=== PATIENT | female | born 1970 | race Caucasian/White ===

== ENCOUNTER 2016-11-17 13:25 | Emergency (ER) | payer MEDICAID ==
[2016-11-17] MEDS ORDERED: NS 1,000 ML IV ONE (13:35)
[2016-11-17] MEDS ORDERED: ONDANSETRON 4 MG/2 ML VIAL IVP ONE (13:35)
--- NOTE | 2016-11-17 13:40 | EDPHY ---
H & P Time Seen by Provider: 11/17/16 13:26 HPI/ROS: CHIEF COMPLAINT: Vomiting, myalgias HISTORY OF PRESENT ILLNESS: 46-year-old female presents to the emergency department by ambulance with multiple episodes of vomiting over the last 3 days. The patient thinks that she has vomited 30-40 times over last 3 days. She has mild diffuse abdominal pain. No diarrhea. She felt feverish and chilled especially last night. She states that she has not been well over last several weeks. She was diagnosed with a left otitis media and started on Zithromax which she finished few weeks ago. No cough now. No nasal congestion , rhinorrhea or facial pain. Mild headache. She has some low back discomfort. No urinary symptoms. REVIEW OF SYSTEMS: Constitutional: Subjective fevers, chills Eyes: No double or blurry vision. ENT: No sore throat. Respiratory: No cough, no shortness of breath. Cardiac: No chest pain. Gastrointestinal: As above. No diarrhea. Genitourinary: No dysuria. Musculoskeletal: No neck or back pain. Skin: No rashes. Neurological: headache. Past Medical/Surgical History: Hysterectomy, pulmonary embolism Social History: Homeless Physical Exam: General Appearance: Alert, no distress. Temperature 37.9. Eyes: Pupils equal and round. Extraocular motions are all intact. ENT: Mouth: Mucous membranes moist. Respiratory: No wheezing, rhonchi, or rales, lungs are clear to auscultation. Cardiovascular: Regular rate and rhythm. Gastrointestinal: Abdomen is obese and soft and nontender, no masses, no rebound or guarding, bowel sounds normal. No CVA tenderness bilaterally. Neurological: Alert and oriented x 3, cranial nerves II through XII grossly intact Skin: Warm and dry, no rashes. Musculoskeletal: Nontender to palpate along the cervical, thoracic or lumbar spine. Neck is supple. Extremities: Full range of motion and no peripheral edema. Psychiatric: Patient is oriented X 3, there is no agitation. Constitutional: Initial Vital Signs Temperature (C) 37.9 C 11/17/16 13:37 Heart Rate 100 11/17/16 13:37 Respiratory Rate 14 11/17/16 13:37 Blood Pressure 142/94 H 11/17/16 13:37 O2 Sat (%) 96 11/17/16 13:37 O2 Delivery Mode Room Air O2 (L/minute) 2 Allergies/Adverse Reactions: latex Allergy (Verified 11/17/16 13:37) Penicillins Allergy (Verified 11/17/16 13:36) Medical Decision Making - Diagnostics Imaging: Chest x-ray reveals no acute pulmonary disease. This is reviewed by myself the PAC system as well as by the radiologist. ED Course/Re-evaluation: 46-year-old female presents to the emergency department by ambulance with myalgias and multiple episodes of vomiting. An IV was established and laboratory studies were unremarkable. Patient was given 30 mg of IV Toradol, IV Zofran, Phenergan 12.5 mg IV, and 1 mg of Ativan IV. O2 saturation was low 90s on room air. Chest x-ray reveals no evidence of pneumonia. Patient tolerated p. o. fluids. She will be discharged by cab to the [facility] for the night. Differential Diagnosis: Including but not limited to influenza, gastritis, dehydration, pneumonia - Data Points Laboratory Results: Laboratory Results 11/17/16 13:45 11/17/16 13:45 11/17/16 13:45 WBC 10.36 H 10^3/uL (3.80-9.50) RBC 5.12 10^6/uL (4.18-5.33) Hgb 14.6 g/dL (12.6-16.3) Hct 43.4 % (38.0-47.0) MCV 84.8 fL (81.5-99.8) MCH 28.5 pg (27.9-34.1) MCHC 33.6 g/dL (32.4-36.7) RDW 12.5 % (11.5-15.2) Plt Count 223 10^3/uL (150-400) MPV 9.1 fL (8.7-11.7) Neut % (Auto) 80.1 H % (39.3-74.2) Lymph % (Auto) 13.4 L % (15.0-45.0) Cobb % (Auto) 5.3 % (4.5-13.0) Eos % (Auto) 0.3 L % (0.6-7.6) Baso % (Auto) 0.5 % (0.3-1.7) Nucleat RBC Rel Count 0.0 % (0.0-0.2) Absolute Neuts (auto) 8.30 H 10^3/uL (1.70-6.50) Absolute Lymphs (auto) 1.39 10^3/uL (1.00-3.00) Absolute Monos (auto) 0.55 10^3/uL (0.30-0.80) Absolute Eos (auto) 0.03 10^3/uL (0.03-0.40) Absolute Basos (auto) 0.05 10^3/uL (0.02-0.10) Absolute Nucleated RBC 0.00 10^3/uL (0-0.01) Immature Gran % 0.4 % (0.0-1.1) Immature Gran # 0.04 10^3/uL (0.00-0.10) Sodium 143 mEq/L (134-144) Potassium 3.8 mEq/L (3.5-5.2) Chloride 105 mEq/L (97-110) Carbon Dioxide 25 mEq/l (22-31) Anion Gap 13 mEq/L (8-16) BUN 6 L mg/dL (7-23) Creatinine 0.6 mg/dL (0.6-1.0) Estimated GFR > 60 Glucose 99 mg/dL (70-100) Calcium 9.5 mg/dL (8.5-10.4) Total Bilirubin 1.0 mg/dL (0.1-1.4) Conjugated Bilirubin 0.2 mg/dL (0.0-0.5) Unconjugated Bilirubin 0.8 mg/dL (0.0-1.1) AST 18 IU/L (14-46) ALT 24 IU/L (9-52) Alkaline Phosphatase 90 IU/L (38-126) Total Protein 7.2 g/dL (6.3-8.2) Albumin 4.1 g/dL (3.5-5.0) Lipase 60.0 IU/L (23-300) Influenza Typ A,B (DFA) NEGATIVE FOR FLU (NEGATIVE) Medications Given: Discontinued Medications Sodium Chloride (Ns) 1,000 mls @ 0 mls/hr IV ONCE ONE PRN Reason: Wide Open Stop: 11/17/16 13:36 Last Admin: 11/17/16 13:45 Dose: 1,000 mls Ketorolac Tromethamine (Toradol) 30 mg IVP EDNOW ONE Stop: 11/17/16 14:28 Last Admin: 11/17/16 14:41 Dose: 30 mg Ondansetron HCl (Zofran) 4 mg IVP EDNOW ONE Stop: 11/17/16 13:36 Last Admin: 11/17/16 13:46 Dose: 4 mg Promethazine HCl (Phenergan Injection) 12.5 mg IVP ONCE ONE Stop: 11/17/16 15:31 Last Admin: 11/17/16 15:40 Dose: 12.5 mg Departure - Departure Disposition: Home, Routine, Self-Care Clinical Impression: Myalgia Vomiting Qualifiers: Vomiting type: unspecified Vomiting Intractability: non-intractable Nausea presence: with nausea Qualifier Code: (R11.2) Nausea with vomiting, unspecified Instructions: Acute Nausea and Vomiting (ED), Musculoskeletal Pain (ED) Additional Instructions: Clear liquids and slowly advance diet as tolerated. Adult Pain & Fever Control: We recommend Acetaminophen (Tylenol) and Ibuprofen (Motrin,Advil) for pain and fever control. When fever is high or pain severe, both drugs can be used at the same time, but at different intervals. Please note the time differences. Your dose is: Acetaminophen 1000mg every 4 to 6 hours Ibuprofen 600mg every 8 hours with food Note: do not take Acetaminophen with Hydrocodone (Vicodin, Lortab) or Oycodone (Percocet). These medications also contain Acetaminophen. No more than 3000mg of Acetaminophen should be taken in 24 hours (for an adult). Referrals: Kirsty Croft MD [Primary Care Provider] - 1-2 days without fail
[2016-11-17 13:52] LABS: % IMMATURE GRANULYOCYTES 0.4 % (0.0-1.1); ABSOLUTE IMMATURE GRANULOCYTES 0.04 10^3/uL (0.00-0.10); ADD DIFF? NO; ADD MORPH? NO; ADD SCAN? NO; ATYPICAL LYMPHOCYTE FLAG 90 (0-99); FRAGMENT RBC FLAG 0 (0-99); HEMATOCRIT 43.4 % (38.0-47.0); HEMOGLOBIN 14.6 g/dL (12.6-16.3); LEFT SHIFT FLG 0 (0-99); LIPEMIA HEMOLYSIS FLAG 80 (0-99); MEAN CELL HEMOGLOBIN 28.5 pg (27.9-34.1); MEAN CELL HEMOGLOBIN CONCENTR. 33.6 g/dL (32.4-36.7); MEAN CELL VOLUME 84.8 fL (81.5-99.8); MEAN PLATELET VOLUME 9.1 fL (8.7-11.7); PLATELET CLUMPS FLAG 0 (0-99); PLATELET COUNT 223 10^3/uL (150-400); RED BLOOD CELL COUNT 5.12 10^6/uL (4.18-5.33); RED CELL DISTRIBUTION WIDTH 12.5 % (11.5-15.2)
[2016-11-17 14:24] LABS: ALANINE AMINOTRANSFERASE 24 IU/L (9-52); ALBUMIN 4.1 g/dL (3.5-5.0); ALKALINE PHOSPHATASE 90 IU/L (38-126); ANION GAP 13 mEq/L (8-16); ASPARTATE AMINOTRANSFERASE 18 IU/L (14-46); BILIRUBIN-CONJUGATED 0.2 mg/dL (0.0-0.5); BILIRUBIN-UNCONJUGATED 0.8 mg/dL (0.0-1.1); CALCIUM 9.5 mg/dL (8.5-10.4); CARBON DIOXIDE 25 mEq/l (22-31); CHLORIDE 105 mEq/L (97-110); CREATININE 0.6 mg/dL (0.6-1.0); GLOMERULAR FILTRATION RATE > 60; GLUCOSE 99 mg/dL (70-100); POTASSIUM 3.8 mEq/L (3.5-5.2); SODIUM 143 mEq/L (134-144); TOTAL PROTEIN 7.2 g/dL (6.3-8.2)
[2016-11-17] MEDS ORDERED: KETOROLAC 30 MG/1 ML SDV IVP ONE (14:27)
[2016-11-17 15:04] VITALS: TEMP 99.5
[2016-11-17] MEDS ORDERED: PROMETHAZINE HCL 25 MG/ML INJ IVP ONE (15:30)
[2016-11-17 16:09] VITALS: RESP 18
--- NOTE | 2016-11-17 16:33 | DX ---
AP and lateral chest History: Pain with flulike symptoms. Comparison: None available. Findings: Lung volumes are low with mild basilar atelectasis. There is no focal consolidation, pneumo thorax, or visible pleural effusion. Borderline cardiomegaly is likely exaggerated by hypoventilatory AP technique. Degenerative change is present in the spine. Impression: Hypoventilatory chest with no acute findings.
[2016-11-17 17:10] VITALS: BP 132/80; PULSE 89; O2SAT 93
== END 2016-11-17 17:06 | disposition home or self-care (01) ==
DX: R11.2 Nausea with vomiting, unspecified (principal); M79.1 Myalgia; Z91.040 Latex allergy status
CPT/HCPCS: 96374; J1885; J2405; J2550

== ENCOUNTER 2016-11-19 16:21 | Emergency (ER) | payer MEDICAID ==
[2016-11-19 16:26] VITALS: RESP 16
[2016-11-19] MEDS ORDERED: NS 1,000 ML IV ONE ×2 (17:06)
--- NOTE | 2016-11-19 17:09 | EDPHY ---
H & P Stated Complaint: N/V for 5 days Time Seen by Provider: 11/19/16 16:32 HPI/ROS: CHIEF COMPLAINT: Nausea and vomiting, cough, abdominal pain HISTORY OF PRESENT ILLNESS: The patient presents to the ED with complaints of nausea, vomiting, cough x2 days and generalized mild abdominal pain. The patient was seen in the ED 2 days ago and had a workup including unremarkable laboratory studies, a negative chest x-ray and a negative flu test. The patient reportedly saw her primary care provider today who attempted to establish an IV for IV rehydration but was unable to. She was sent to the ED secondary to concerns regarding dehydration. The patient tells me that she has had 1 episode of loose stool today. She continues to have mild generalized abdominal pain which is nonlocalized. The patient denies dysuria. She has a slight dry cough. She denies any additional acute complaints. REVIEW OF SYSTEMS: A comprehensive 10 point review of systems is otherwise negative aside from elements mentioned in the history of present illness. Source: Patient Exam Limitations: No limitations - Personal History LMP (Females 10-55): Hysterectomy Current Tetanus/Diphtheria Vaccine: Unsure Current Tetanus Diphtheria and Acellular Pertussis (TDAP): Unsure - Medical/Surgical History Hx Asthma: No Hx Chronic Respiratory Disease: No Hx Diabetes: No Hx Cardiac Disease: No Hx Renal Disease: No Hx Cirrhosis: No Hx Alcoholism: No Hx HIV/AIDS: No Hx Splenectomy or Spleen Trauma: No Other PMH: ONI, PE's, Fibromyalgia, Cervical CA - Social History Smoking Status: Never smoked Alcohol Use: None Drug Use: None - Physical Exam Exam: General Appearance: Alert, no distress Eyes: Pupils equal and round no pallor or injection ENT, Mouth: Mucous membranes moist Respiratory: There are no retractions, lungs are clear to auscultation Cardiovascular: Regular rate and rhythm Gastrointestinal: Minimal generalized tenderness to palpation, no peritoneal signs, normal bowel sounds Neurological: A&O, normal motor function, normal sensory exam, normal cranial nerves Skin: Warm and dry, no rashes Musculoskeletal: Neck is supple nontender Extremities: symmetrical, full range of motion Constitutional: Initial Vital Signs Temperature (C) 36.5 C 11/19/16 16:23 Heart Rate 84 11/19/16 16:23 Respiratory Rate 16 11/19/16 16:23 Blood Pressure 145/99 H 11/19/16 16:23 O2 Sat (%) 100 11/19/16 16:23 O2 Delivery Mode Room Air Allergies/Adverse Reactions: latex Allergy (Verified 11/17/16 13:37) Penicillins Allergy (Verified 11/17/16 13:36) Home Medications: Medication Instructions Recorded Ondansetron Odt [Zofran Odt] 4 mg PO Q4PRN PRN #20 tab 11/19/16 Medical Decision Making - Diagnostics EKG Interpretation: EKG: Complete interpretation has been separately recorded in the [facility] archive. Summary impression: Sinus rhythm ED Course/Re-evaluation: The patient presents to the emergency department with nausea, vomiting and a mild viral syndrome. Her laboratory studies remain within normal limits. She did have a brief episode of chest pain but has an unremarkable EKG. Her vital signs are stable. Her abdominal examination is benign. I do not feel that imaging is indicated at this point time. She presents to the ED with a likely viral syndrome with the vomiting. I do feel the patient is safe to be discharged home. She will be given a prescription for Zofran. She is advised to follow up with [facility]. She is given customary return precautions. - Data Points Laboratory Results: Laboratory Results 11/19/16 17:07 11/19/16 17:07 11/19/16 17:07 WBC 5.22 10^3/uL (3.80-9.50) RBC 4.61 10^6/uL (4.18-5.33) Hgb 13.3 g/dL (12.6-16.3) Hct 40.0 % (38.0-47.0) MCV 86.8 fL (81.5-99.8) MCH 28.9 pg (27.9-34.1) MCHC 33.3 g/dL (32.4-36.7) RDW 12.5 % (11.5-15.2) Plt Count 219 10^3/uL (150-400) MPV 9.1 fL (8.7-11.7) Neut % (Auto) 54.4 % (39.3-74.2) Lymph % (Auto) 35.6 % (15.0-45.0) Beauregard % (Auto) 7.3 % (4.5-13.0) Eos % (Auto) 1.7 % (0.6-7.6) Baso % (Auto) 0.8 % (0.3-1.7) Nucleat RBC Rel Count 0.0 % (0.0-0.2) Absolute Neuts (auto) 2.84 10^3/uL (1.70-6.50) Absolute Lymphs (auto) 1.86 10^3/uL (1.00-3.00) Absolute Monos (auto) 0.38 10^3/uL (0.30-0.80) Absolute Eos (auto) 0.09 10^3/uL (0.03-0.40) Absolute Basos (auto) 0.04 10^3/uL (0.02-0.10) Absolute Nucleated RBC 0.00 10^3/uL (0-0.01) Immature Gran % 0.2 % (0.0-1.1) Immature Gran # 0.01 10^3/uL (0.00-0.10) Sodium 144 mEq/L (134-144) Potassium 3.9 mEq/L (3.5-5.2) Chloride 105 mEq/L (97-110) Carbon Dioxide 27 mEq/l (22-31) Anion Gap 12 mEq/L (8-16) BUN 8 mg/dL (7-23) Creatinine 0.6 mg/dL (0.6-1.0) Estimated GFR > 60 Glucose 90 mg/dL (70-100) Calcium 9.0 mg/dL (8.5-10.4) Total Bilirubin 0.8 mg/dL (0.1-1.4) Conjugated Bilirubin 0.3 mg/dL (0.0-0.5) Unconjugated Bilirubin 0.5 mg/dL (0.0-1.1) AST 17 IU/L (14-46) ALT 25 IU/L (9-52) Alkaline Phosphatase 80 IU/L (38-126) Total Protein 6.7 g/dL (6.3-8.2) Albumin 3.7 g/dL (3.5-5.0) Lipase 53.0 IU/L (23-300) Medications Given: Discontinued Medications Sodium Chloride (Ns) 1,000 mls @ 0 mls/hr IV ONCE ONE PRN Reason: Wide Open Stop: 11/19/16 17:07 Last Admin: 11/19/16 17:21 Dose: 1,000 mls Sodium Chloride (Ns) 1,000 mls @ 0 mls/hr IV ONCE ONE PRN Reason: Wide Open Stop: 11/19/16 17:07 Last Admin: 11/19/16 17:21 Dose: 1,000 mls Departure - Departure Disposition: Home, Routine, Self-Care Clinical Impression: Viral syndrome Condition: Good Instructions: Acute Nausea and Vomiting (ED) Additional Instructions: 1. Take Ibuprofen or Motrin 600 mg by mouth three times a day. 2. Zofran as needed for nausea 3. Please return to the ED for markedly worsening symptoms or other concerns. Referrals: Kirsty Croft MD [Primary Care Provider] - As per Instructions
[2016-11-19 17:31] LABS: % IMMATURE GRANULYOCYTES 0.2 % (0.0-1.1); ABSOLUTE IMMATURE GRANULOCYTES 0.01 10^3/uL (0.00-0.10); ADD DIFF? NO; ADD MORPH? NO; ADD SCAN? NO; ATYPICAL LYMPHOCYTE FLAG 70 (0-99); FRAGMENT RBC FLAG 0 (0-99); HEMOGLOBIN 13.3 g/dL (12.6-16.3); LEFT SHIFT FLG 0 (0-99); LIPEMIA HEMOLYSIS FLAG 80 (0-99); MEAN CELL HEMOGLOBIN 28.9 pg (27.9-34.1); MEAN CELL HEMOGLOBIN CONCENTR. 33.3 g/dL (32.4-36.7); MEAN CELL VOLUME 86.8 fL (81.5-99.8); MEAN PLATELET VOLUME 9.1 fL (8.7-11.7); PLATELET CLUMPS FLAG 0 (0-99); PLATELET COUNT 219 10^3/uL (150-400); RED BLOOD CELL COUNT 4.61 10^6/uL (4.18-5.33); RED CELL DISTRIBUTION WIDTH 12.5 % (11.5-15.2)
[2016-11-19 17:43] LABS: ALBUMIN 3.7 g/dL (3.5-5.0); ALKALINE PHOSPHATASE 80 IU/L (38-126); ANION GAP 12 mEq/L (8-16); ASPARTATE AMINOTRANSFERASE 17 IU/L (14-46); BILIRUBIN,TOTAL 0.8 mg/dL (0.1-1.4); CARBON DIOXIDE 27 mEq/l (22-31); CHLORIDE 105 mEq/L (97-110); CREATININE 0.6 mg/dL (0.6-1.0); GLOMERULAR FILTRATION RATE > 60; GLUCOSE 90 mg/dL (70-100); POTASSIUM 3.9 mEq/L (3.5-5.2); SODIUM 144 mEq/L (134-144); TOTAL PROTEIN 6.7 g/dL (6.3-8.2)
[2016-11-19 17:44] LABS: ALANINE AMINOTRANSFERASE 25 IU/L (9-52); BILIRUBIN-CONJUGATED 0.3 mg/dL (0.0-0.5); BILIRUBIN-UNCONJUGATED 0.5 mg/dL (0.0-1.1)
--- NOTE | 2016-11-19 18:24 | CPEKG ---
Heart Rate: 67 RR Interval: 896 P-R Interval: 160 QRSD Interval: 76 QT Interval: 452 QTC Interval: 478 P Brunson: 29 QRS Brunson: 20 T Wave Brunson: 21 EKG Severity - NORMAL ECG - EKG Impression: SINUS RHYTHM Electronically Signed By: Mario Rivera 19-Nov-2016 23:03:04
[2016-11-19] MEDS ORDERED: ONDANSETRON 4MG PREPACK#2 BTL TAKEHOME ONE (18:36)
[2016-11-19 18:53] VITALS: BP 138/95; PULSE 74; TEMP 98.2; O2SAT 96
== END 2016-11-19 19:03 | disposition home or self-care (01) ==
LOC: EEVIPCON 16:21
DX: B34.9 Viral infection, unspecified (principal); Z91.040 Latex allergy status; Z85.41 Personal history of malignant neoplasm of cervix uteri

== ENCOUNTER 2017-04-09 08:53 | Emergency (ER) | payer MEDICAID ==
[2017-04-09 09:09] VITALS: BP 154/106; PULSE 70; RESP 18; TEMP 98.4; O2SAT 96
[2017-04-09] MEDS ORDERED: RABIES IMMUNE GLOBULIN 300 UNIT/2 ML VIAL IM ONE (09:40)
[2017-04-09] MEDS ORDERED: TDAP ADULT 0.5 ML INJ (BOOSTRIX) IM ONE (09:40)
[2017-04-09] MEDS ORDERED: RABIES VACC, HUMAN DIPLOID/PF 2.5 UNIT VIAL (RABAVERT) IM ONE (09:40)
--- NOTE | 2017-04-09 09:43 | EDPHY ---
H & P Stated Complaint: Bit by unknown dog on R thigh;occurred in [place] yesterday HPI/ROS: CHIEF COMPLAINT: Dog bite HISTORY OF PRESENT ILLNESS: Patient was walking in [place] yesterday when she was bit by an unknown dog. She said there were 2 dogs fighting around her and she got in between them accidentally. She was bit in the right lateral thigh. There is no way to know about the dog's vaccination status as they quickly left. There was no call or on the dog. She has had moderate pain in that area with some bruising. Minimal bleeding. No bony tenderness. Tetanus status is in question. She has no injuries elsewhere. No other associated complaints or modifying factors. REVIEW OF SYSTEMS: Ten systems reviewed and are negative unless otherwise noted in the HPI PERTINENT MEDICAL HISTORY: Denies any medical history EXAMINATION General Appearance: Alert, no distress Head: normocephalic, atraumatic Eyes: Pupils equal and round, no conjunctival pallor or injection ENT, Mouth: Mucous membranes moist Neck: Normal inspection, supple, non-tender Cardiovascular: Regular rate and rhythm. Pulses intact distally symmetrically at 2+ in the DP and PT Neurological: A&O, nonfocal, antalgic but steady gait Skin: Warm and dry, no rash. Puncture wounds over the right lateral thigh consistent with dog bite. There is ecchymosis surrounding this. No purulence. No erythema. No fluctuance. Extremities: Tender over the area of puncture wound. No bony tenderness of the right lower extremity. Range of motion of the right hip, knee and ankle fully intact. Neurovascular intact distal to the puncture wounds. Psychiatric: Mood and affect normal MDM: 9:40 a.m. Dog bite to the right thigh that occurred yesterday. Tetanus status is un certain and we will updated here. Patient is requesting over axis from rabies. This is because the dog was not collared and unable to be located. Concerned as she feels that the dog was not taking care. She is requesting start treatment here. 10:00 a.m. Discussed the case with Dr. Rivera. He does not recommend rabies post-exposure prophylaxis at this time. She is comfortable with not having the rabies vaccine or immune globulin. She is discharged home with prescription for doxycycline as she is allergic to penicillin. We discussed routine wound care for this. Follow up with primary care physician for definitive care. Return here for worsening pain, surrounding erythema, purulence, fever. She is comfortable this plan and discharged home in stable condition. SUPERVISION: Shared visit with Dr. Rivera. Patient was not personally evaluated by Dr. Rivera Source: Patient Exam Limitations: No limitations - Personal History LMP (Females 10-55): Hysterectomy Current Tetanus Diphtheria and Acellular Pertussis (TDAP): Unsure - Medical/Surgical History Hx Asthma: No Hx Chronic Respiratory Disease: No Hx Diabetes: No Hx Cardiac Disease: No Hx Renal Disease: No Hx Cirrhosis: No Hx Alcoholism: No Hx HIV/AIDS: No Hx Splenectomy or Spleen Trauma: No Other PMH: ONI, PE's, Fibromyalgia, Cervical CA, HTN - Social History Smoking Status: Never smoked Constitutional: Initial Vital Signs Temperature (C) 98.4 F 04/09/17 09:00 Heart Rate 70 04/09/17 09:00 Respiratory Rate 18 04/09/17 09:00 Blood Pressure 154/106 H 04/09/17 09:00 O2 Sat (%) 96 04/09/17 09:00 O2 Delivery Mode Room Air Allergies/Adverse Reactions: diphenhydramine [From Benadryl] Allergy (Mild, Verified 04/09/17 09:05) itching,vomiting Penicillins Allergy (Mild, Verified 04/09/17 09:04) Vomiting latex Allergy (Verified 11/17/16 13:37) Home Medications: Medication Instructions Recorded Doxycycline Hyclate 100 mg PO BID #20 tab 04/09/17 Medical Decision Making - Data Points Medications Given: Discontinued Medications Diphtheria/Tetanus/Acell Pertussis (Boostrix) 0.5 ml IM .ONCE ONE Stop: 04/09/17 09:41 Last Admin: 04/09/17 09:47 Dose: 0.5 ml Departure - Departure Disposition: Home, Routine, Self-Care Clinical Impression: Bite from dog Qualifiers: Encounter type: initial encounter Qualified Code(s): W54.0XXA - Bitten by dog, initial encounter Condition: Good Instructions: Animal Bite (ED) Additional Instructions: 1. Keep the wound clean dry and cover with nonocclusive dressing next 2. Bacitracin once daily for the next 3-5 days 3. Follow up with primary care for further treatment 4. Return here for worsening pain, redness or purulence Referrals: Sesar Sena DO [Doctor of Osteopathy] - As per Instructions Prescriptions: Doxycycline Hyclate 100 mg PO BID #20 tab
== END 2017-04-09 10:05 | disposition home or self-care (01) ==
PROC: 3E0234Z Introduction of Serum, Toxoid and Vaccine into Muscle, Percutaneous Approach (ICD-10-PCS; principal; 2017-04-09)
DX: S71.151A Open bite, right thigh, initial encounter (principal); I10 Essential (primary) hypertension; Z23 Encounter for immunization; Z85.41 Personal history of malignant neoplasm of cervix uteri; Z91.040 Latex allergy status; W54.0XXA Bitten by dog, initial encounter

== ENCOUNTER → 2017-05-28 | Outpatient (CLI) | payer MEDICAID | LOC: FCPNEURO 13:40 | PROVIDERS: ATTEND Internal Medicine Sleep Medicine | DX: G47.33 Obstructive sleep apnea (adult) (pediatric) (principal); G47.61 Periodic limb movement disorder ==

== ENCOUNTER 2017-09-05 21:16 | Inpatient (IN) | payer MEDICAID ==
--- NOTE | 2017-09-05 21:34 | CPEKG ---
Heart Rate: 62 RR Interval: 968 P-R Interval: 164 QRSD Interval: 76 QT Interval: 408 QTC Interval: 415 P Blanchard: 44 QRS Blanchard: 13 T Wave Blanchard: 25 EKG Severity - BORDERLINE ECG - EKG Impression: SINUS RHYTHM EKG Impression: BORDERLINE T WAVE ABNORMALITIES Electronically Signed By: Gurwinder Miller 06-Sep-2017 08:43:57
--- NOTE | 2017-09-05 22:02 | EDPHY ---
H & P Stated Complaint: CP, dyspnea, nausea, dizzy - all day, previous Hx of same without Dx Time Seen by Provider: 09/05/17 21:49 HPI/ROS: CHIEF COMPLAINT: Chest pain, dyspnea, nausea, dizzy HISTORY OF PRESENT ILLNESS: The patient is 47 y/o female complaining of nausea which developed last night associated with slight episodes of chest discomfort. Patient reports since noon today she developed significant nausea, left-sided chest discomfort, dizziness, shortness of breath, and pain into her left upper extremity. She reports symptoms have been mostly consistent with slight waxing and waning since noon. No vomiting. No diaphoresis. Similar symptoms in the remote past no clear diagnosis. Patient denies any history of coronary artery disease, diabetes, hypertension, reflux, or gastritis. She does report a history total hysterectomy complicated with multiple PE's, which she was placed on anticoagulants for 2 years. The nausea has been continuous since last night and the chest pain has been waxing and waning since 12:00. Denies history of CAD , diabetes. No fever, chills, URI symptoms, vomiting, diarrhea, urinary complaints, headache. No pain or weakness in the leg. No upper extremity weakness. No numbness. Does report pain in the left arm. REVIEW OF SYSTEMS Aside from elements discussed in the HPI, a comprehensive 10-point review of systems was reviewed and is negative. PAST MEDICAL HISTORY: PE, sleep apnea, fibromyalgia, cervical cancer, hypertension, appendectomy, cholecystectomy, total hysterectomy SOCIAL HISTORY: at bedside, lives in [place], denies alcohol or tobacco use VITAL SIGNS: BP 158/110, others reviewed by me as normal GENERAL: Moderately overweight, pleasant, somewhat hoarse voice. Complaining of significant epigastric and left-sided chest pain. HEENT: Atraumatic. Eyes: No icterus, no injection. Mouth: moist mucous membranes. No erythema or lesions. Neck: supple with no adenopathy. LUNGS: Clear to auscultation bilaterally, no wheezes, rhonchi or rales. CARDIAC: Left chest wall tenderness. Regular rate and rhythm, no rubs, murmurs or gallops. ABDOMEN: Epigastric and LUQ tenderness. No guarding or rebound. Soft, nondistended, bowel sounds normal. BACK: No CVA tenderness. EXTREMITIES: No trauma. Trace edema. Range of motion is normal throughout. NEURO: Alert and oriented, grossly nonfocal. No weakness or numbness. SKIN: Warm and dry, no rash. PSYCHIATRIC: Normal mentation, no agitation. Portions of this note were transcribed by a medical transcription editor. I personally performed a history, physical exam, medical decision making, and confirmed accuracy of information the transcribed note. - Personal History LMP (Females 10-55): Hysterectomy Current Tetanus/Diphtheria Vaccine: Yes - Medical/Surgical History Hx Asthma: No Hx Chronic Respiratory Disease: No Hx Diabetes: No Hx Cardiac Disease: No Hx Renal Disease: No Hx Cirrhosis: No Hx Alcoholism: No Hx HIV/AIDS: No Hx Splenectomy or Spleen Trauma: No Other PMH: PSHx: ONI. PMHx: PE's, Fibromyalgia, Cervical CA, HTN - Social History Smoking Status: Never smoked Constitutional: Initial Vital Signs Temperature (C) 36.5 C 09/05/17 21:20 Heart Rate 77 09/05/17 21:20 Respiratory Rate 18 09/05/17 21:20 Blood Pressure 158/110 H 09/05/17 21:20 O2 Sat (%) 96 09/05/17 21:20 O2 Delivery Mode Room Air Allergies/Adverse Reactions: diphenhydramine [From Benadryl] Allergy (Mild, Verified 04/09/17 09:05) itching,vomiting Penicillins Allergy (Mild, Verified 04/09/17 09:04) Vomiting latex Allergy (Verified 11/17/16 13:37) Home Medications: Medication Instructions Recorded Pregabalin [Lyrica 50mg (*)] 50 mg PO TID 09/06/17 Zolpidem Tartrate [Ambien 10 mg] 10 mg PO HS 09/06/17 Medical Decision Making - Diagnostics EKG Interpretation: 12-LEAD EKG: Please see the full report in [facility]. My interpretation: Normal sinus rhythm with a rate of 62, borderline T wave abnormalities ( flattened T wave in V5, V6 when compared to old EKG). Imaging Results: CXR: Impression: Moderate hypoventilatory features. Dictated By: Kenneth Sauceda MD Results: CT scan of the chest for pulmonary embolism was obtained. I viewed the images independently on the PACS system. I discussed the results of the study with the radiologist. Impression: 1. There is no CT evidence of pulmonary artery thrombo-embolic disease. 2. Hypoventilatory features with some bibasilar subsegmental atelectasis. 3. Morbid obesity with hepatic steatosis and mild splenomegaly. 4. Status post cholecystectomy. Findings were discussed with Ania Eller MD at 0:02, on 09/06/2017. . Please see the full radiology report. Imaging: Discussed imaging studies w/ outbound supervisor Radiologist, I viewed and interpreted images myself ED Course/Re-evaluation: The patient is a 47 y/o female presenting with chest pain and shortness of breath. On exam she has left chest wall tenderness, moderate epigastric tenderness, and mild LUQ tenderness. Aspirin given. Zofran given 4 patient's nausea. 4mg IV Morphine administered for pain management. 213: EKG interpreted as sinus rhythm with borderline T wave abnormalities when compared to old EKG. Patient's liver function tests and lipase are normal. CBC largely unremarkable. Troponin is negative. On re-examination the patient continues to complain of significant epigastric discomfort with tenderness palpation as well as tenderness across the chest. She reports that her chest discomfort feel similar to her prior PE. GI cocktail as well as Dilaudid was administered. CT for pulmonary embolism was ordered. CT scan for PE was negative. On re-examination the patient reports feeling no relief with her GI cocktail. Also complains of pain in her left upper arm, to level of elbow, along with nausea. Toradol administered along with dilaudid. Course discussed with Dr Cason. Plan for admission if no relief from above medications. Patient seen in the emergency department by Dr. Walters. She has had no relief with the above medications. She continues to report nausea, chest discomfort, discomfort in her arm. No headache. Will be admitted to the hospital. Differential Diagnosis: Differential diagnoses for the patient's symptom complex was considered including but not limited to gastritis, GERD, pulmonary infectious process, COPD exacerbation, pulmonary embolism, pericarditis, costochondritis, cardiac causes including myocardial ischemia acute coronary syndrome. Consult/Admit Bed Type: CHIQUITA Merritt - Data Points Laboratory Results: Laboratory Results 09/05/17 21:50 09/05/17 21:50 Medications Given: Enoxaparin Sodium (Lovenox) 40 mg SC DAILY JERARDO Stop: 03/05/18 08:59 Last Admin: 09/06/17 09:32 Dose: 40 mg Hydromorphone/Sodium Chloride (Hydromorphone) 0.2 - 0.4 mg IVP Q2H PRN PRN Reason: Pain, Severe Unable to Take PO Stop: 09/16/17 01:05 Last Admin: 09/06/17 09:41 Dose: 0.4 mg Melatonin (Melatonin) 3 mg PO HS PRN PRN Reason: Sleep/Insomnia Stop: 03/05/18 02:52 Last Admin: 09/06/17 02:58 Dose: 3 mg Methocarbamol (Robaxin) 1,000 mg PO TID PRN PRN Reason: Spasms Stop: 03/05/18 15:59 Last Admin: 09/06/17 12:23 Dose: 1,000 mg Ondansetron HCl (Zofran Odt) 4 mg PO Q4HRS PRN PRN Reason: Nausea/Vomiting, Use 1st Stop: 03/05/18 01:05 Last Admin: 09/06/17 12:00 Dose: 4 mg Discontinued Medications Al Hydroxide/Mg Hydroxide (Maalox Susp) 30 ml PO ONCE ONE Stop: 09/05/17 23:17 Last Admin: 09/05/17 23:25 Dose: 30 ml Aspirin (Aspirin) 324 mg PO EDNOW ONE Stop: 09/05/17 22:20 Last Admin: 09/05/17 22:25 Dose: 324 mg Hydromorphone HCl (Dilaudid) 1 mg IVP EDNOW ONE Stop: 09/05/17 23:46 Last Admin: 09/05/17 23:56 Dose: 1 mg Hydromorphone HCl (Dilaudid) 1 mg IVP EDNOW ONE Stop: 09/06/17 00:12 Last Admin: 09/06/17 00:18 Dose: 1 mg Hyoscyamine Sulfate (Levsin, Hyomax-Sl) 0.25 mg PO ONCE ONE Stop: 09/05/17 23:17 Last Admin: 09/05/17 23:24 Dose: 0.25 mg Ketorolac Tromethamine (Toradol) 30 mg IVP EDNOW ONE Stop: 09/06/17 00:12 Last Admin: 09/06/17 00:17 Dose: 30 mg Lidocaine (Lidocaine 2% Viscous) 15 ml PO ONCE ONE Stop: 09/05/17 23:17 Last Admin: 09/05/17 23:25 Dose: 15 ml Morphine Sulfate (Morphine) 4 mg IVP EDNOW ONE Stop: 09/05/17 22:20 Last Admin: 09/05/17 22:25 Dose: 4 mg Sumatriptan Succinate (Imitrex Sc Injection) 6 mg SC ONCE ONE Stop: 09/06/17 11:57 Last Admin: 09/06/17 12:23 Dose: 6 mg Departure - Departure Disposition: [facility] Inpatient Acute Clinical Impression: Nausea, Chest wall pain Chest pain Qualifiers: Chest pain type: chest pain on breathing Qualified Code(s): R07.1 - Chest pain on breathing Condition: Good Report Scribed for: Ania Eller Report Scribed by: Kim Salazar Date of Report: 09/05/17 Time of Report: 21:59
[2017-09-05] MEDS ORDERED: ASPIRIN 81 MG CHEWABLE TAB PO ONE (22:19)
[2017-09-05 22:24] LABS: % IMMATURE GRANULYOCYTES 0.3 % (0.0-1.1); ABSOLUTE IMMATURE GRANULOCYTES 0.02 10^3/uL (0.00-0.10); ADD DIFF? NO; ADD MORPH? NO; ADD SCAN? NO; ATYPICAL LYMPHOCYTE FLAG 0 (0-99); FRAGMENT RBC FLAG 0 (0-99); HEMATOCRIT 41.8 % (38.0-47.0); HEMOGLOBIN 13.5 g/dL (12.6-16.3); LEFT SHIFT FLG 0 (0-99); LIPEMIA HEMOLYSIS FLAG 80 (0-99); MEAN CELL HEMOGLOBIN 29.2 pg (27.9-34.1); MEAN CELL HEMOGLOBIN CONCENTR. 32.3 g/dL (32.4-36.7); MEAN CELL VOLUME 90.3 fL (81.5-99.8); MEAN PLATELET VOLUME 9.5 fL (8.7-11.7); PLATELET CLUMPS FLAG 90 (0-99); PLATELET COUNT 225 10^3/uL (150-400); RED BLOOD CELL COUNT 4.63 10^6/uL (4.18-5.33); RED CELL DISTRIBUTION WIDTH 13.1 % (11.5-15.2)
[2017-09-05 22:33] LABS: ALANINE AMINOTRANSFERASE 26 IU/L (9-52); ALKALINE PHOSPHATASE 71 IU/L (38-126); ANION GAP 15 mEq/L (8-16); ASPARTATE AMINOTRANSFERASE 21 IU/L (14-46); BILIRUBIN,TOTAL 0.3 mg/dL (0.1-1.4); BILIRUBIN-CONJUGATED 0.2 mg/dL (0.0-0.5); BILIRUBIN-UNCONJUGATED 0.1 mg/dL (0.0-1.1); CALCIUM 9.2 mg/dL (8.5-10.4); CARBON DIOXIDE 19 mEq/l (22-31); CHLORIDE 108 mEq/L (97-110); CREATININE 0.6 mg/dL (0.6-1.0); GLOMERULAR FILTRATION RATE > 60; GLUCOSE 127 mg/dL (70-100); POTASSIUM 3.9 mEq/L (3.5-5.2); SODIUM 142 mEq/L (134-144); TOTAL PROTEIN 6.1 g/dL (6.3-8.2)
[2017-09-05 22:45] LABS: TROPONIN I < 0.012 ng/mL (0.000-0.034)
[2017-09-05] MEDS ORDERED: HYOSCYAMINE SULFATE 0.125 MG TAB PO ONE (23:16)
[2017-09-05] MEDS ORDERED: MAG HYDROX/AL HYDROX/SIMETH 30 ML UDCUP PO ONE (23:16)
[2017-09-05] MEDS ORDERED: LIDOCAINE 2% VISCOUS 15 ML UDCUP PO ONE (23:16)
[2017-09-05] MEDS ORDERED: IOPAMIDOL (ISOVUE 370) 100 ML BTL IV ONE (23:17)
[2017-09-05] MEDS ORDERED: HYDROmorphONE/DILAUDID 1 MG/ML INJ IVP ONE (23:45)
[2017-09-06] MEDS ORDERED: KETOROLAC 30 MG/1 ML SDV IVP ONE (00:11)
[2017-09-06] MEDS ORDERED: HYDROmorphONE/DILAUDID 1 MG/ML INJ IVP ONE (00:11)
[2017-09-06] MEDS ORDERED: ACETAMINOPHEN 325 MG TAB PO PRN (01:06)
[2017-09-06] MEDS ORDERED: ONDANSETRON 4 MG/2 ML VIAL IVP PRN (01:06)
[2017-09-06] MEDS ORDERED: ONDANSETRON DISINTEGRATING 4 MG TAB PO PRN (01:06)
[2017-09-06] MEDS ORDERED: oxyCODONE IR 5 MG TAB PO PRN (01:06)
--- NOTE | 2017-09-06 01:22 | PDGENHP ---
History and Physical - Chief Complaint Chest pain - History of Present Illness 47 yo F w/ hx of fibormyalgia and PE's (no longer on AC) presents with chest pain. Patient began to experience nausea yesterday. She then developed 10/10 L sided chest pain with radiation down the left arm. Pain is worsened by pressing on her chest or leaning forward and has not been particularly improved by anything despite morphine 4 mg IV, Dilaudid 2 mg IV total, and toradol 30 mg IV given the ED. She describes it as if someone punched her in the chest with a sharp sensation then traveling to her L elbow. She denies fevers, chills, cough , or other infectious symptoms. In the ED her evaluation has been unremarkable despite ongoing excruciating pain. Vital signs have been WNL, laboratory work-up unremarkable including D- dimer and troponin, and CTPE was negative for PE, pneumonia, or pneumothorax. History Information - Allergies/Home Medication List Allergies/Adverse Reactions: diphenhydramine [From Benadryl] Allergy (Mild, Verified 04/09/17 09:05) itching,vomiting Penicillins Allergy (Mild, Verified 04/09/17 09:04) Vomiting latex Allergy (Verified 11/17/16 13:37) Home Medications: LYRICA 09/05/17 [Last Taken Unknown] I have personally reviewed and updated: family history, medical history - Past Medical History fibromyalgia, pulmonary embolism - Surgical History Reports: hysterectomy - Family History Additional family history: Denies family hx - Social History Smoking Status: Never smoked Review of Systems Review of Systems: ROS: 10pt was reviewed & negative except for what was stated in HPI & below Physical Exam Physical Exam: Temp Pulse Resp BP Pulse Ox 36.5 C 68 17 130/86 H 97 09/05/17 21:20 09/05/17 23:31 09/05/17 23:31 09/05/17 23:31 09/05/17 23:31 Constitutional: obese, uncomfortable Eyes: PERRL, EOMI Ears, Nose, Mouth, Throat: moist mucous membranes, no oral mucosal ulcers Cardiovascular: regular rate and rhythym, no murmur, rub, or gallop Respiratory: no respiratory distress, no rales or rhonchi Gastrointestinal: normoactive bowel sounds, soft, non-tender abdomen Skin: warm, normal color Musculoskeletal: full muscle strength, other (Significant TTP over sternum and medial L breast) Neurologic: AAOx3, CN II-XII Intact Psychiatric: interacting appropriately, not anxious Lab Data & Imaging Review 09/05/17 21:50 09/05/17 21:50 WBC 6.28 10^3/uL (3.80-9.50) 09/05/17 21:50 RBC 4.63 10^6/uL (4.18-5.33) 09/05/17 21:50 Hgb 13.5 g/dL (12.6-16.3) 09/05/17 21:50 Hct 41.8 % (38.0-47.0) 09/05/17 21:50 MCV 90.3 fL (81.5-99.8) 09/05/17 21:50 MCH 29.2 pg (27.9-34.1) 09/05/17 21:50 MCHC 32.3 g/dL (32.4-36.7) L 09/05/17 21:50 RDW 13.1 % (11.5-15.2) 09/05/17 21:50 Plt Count 225 10^3/uL (150-400) 09/05/17 21:50 MPV 9.5 fL (8.7-11.7) 09/05/17 21:50 Neut % (Auto) 50.3 % (39.3-74.2) 09/05/17 21:50 Lymph % (Auto) 39.5 % (15.0-45.0) 09/05/17 21:50 Overton % (Auto) 6.4 % (4.5-13.0) 09/05/17 21:50 Eos % (Auto) 2.4 % (0.6-7.6) 09/05/17 21:50 Baso % (Auto) 1.1 % (0.3-1.7) 09/05/17 21:50 Nucleat RBC Rel Count 0.0 % (0.0-0.2) 09/05/17 21:50 Absolute Neuts (auto) 3.16 10^3/uL (1.70-6.50) 09/05/17 21:50 Absolute Lymphs (auto) 2.48 10^3/uL (1.00-3.00) 09/05/17 21:50 Absolute Monos (auto) 0.40 10^3/uL (0.30-0.80) 09/05/17 21:50 Absolute Eos (auto) 0.15 10^3/uL (0.03-0.40) 09/05/17 21:50 Absolute Basos (auto) 0.07 10^3/uL (0.02-0.10) 09/05/17 21:50 Absolute Nucleated RBC 0.00 10^3/uL (0-0.01) 09/05/17 21:50 Immature Gran % 0.3 % (0.0-1.1) 09/05/17 21:50 Immature Gran # 0.02 10^3/uL (0.00-0.10) 09/05/17 21:50 D-Dimer 0.29 ug/mLFEU (0.00-0.50) 09/05/17 23:01 Sodium 142 mEq/L (134-144) 09/05/17 21:50 Potassium 3.9 mEq/L (3.5-5.2) 09/05/17 21:50 Chloride 108 mEq/L (97-110) 09/05/17 21:50 Carbon Dioxide 19 mEq/l (22-31) L 09/05/17 21:50 Anion Gap 15 mEq/L (8-16) 09/05/17 21:50 BUN 11 mg/dL (7-23) 09/05/17 21:50 Creatinine 0.6 mg/dL (0.6-1.0) 09/05/17 21:50 Estimated GFR > 60 09/05/17 21:50 Glucose 127 mg/dL (70-100) H 09/05/17 21:50 Calcium 9.2 mg/dL (8.5-10.4) 09/05/17 21:50 Total Bilirubin 0.3 mg/dL (0.1-1.4) 09/05/17 21:50 Conjugated Bilirubin 0.2 mg/dL (0.0-0.5) 09/05/17 21:50 Unconjugated Bilirubin 0.1 mg/dL (0.0-1.1) 09/05/17 21:50 AST 21 IU/L (14-46) 09/05/17 21:50 ALT 26 IU/L (9-52) 09/05/17 21:50 Alkaline Phosphatase 71 IU/L (38-126) 09/05/17 21:50 Troponin I < 0.012 ng/mL (0.000-0.034) 09/05/17 21:50 Total Protein 6.1 g/dL (6.3-8.2) L 09/05/17 21:50 Albumin 4.0 g/dL (3.5-5.0) 09/05/17 21:50 Lipase 109 IU/L (23-300) 09/05/17 21:50 Imaging Review: CTPE without PE, pneumonia, or pneumothorax. Visualized and Interpreted EKG results: Yes EKG Interpretation: Positive for: normal sinsus rhythm, NS ST wave abnormalities Assessment & Plan Assessment: 47 yo F w/ hx of fibromyalgia and PE's presents with severe, reproducible chest wall pain without clear etiology. Plan: 1. Chest wall pain - Very atypical from cardiac standpoint noting pain is reproducible upon palpation and worsened by leaning forward. Vital signs have been WNL, laboratory work-up unremarkable including D-dimer and troponin, and CTPE was negative for PE, pneumonia, and pneumothorax. Pain continues at 8/10 despite morphine 4 mg IV, Dilaudid 2 mg IV, Toradol 30 mg IV, and GI cocktail. No ECG changes concerning for acute ischemia. - Admit for observation and pain control - Possibly c/w VZV neuritis prior to rash, monitor site for skin changes - Will check CK and ESR to screen for inflammation or muscle breakdown - Oxycodone, dilaudid, and toradol PRN for pain control - Repeat cardiac enzymes in the morning Diet - Regular Code - Full Ppx - LMWH Dispo - Admit to observation status
[2017-09-06] MEDS ORDERED: POLYETHYLENE GLYCOL 3350 17 GM PKT PO PRN (02:53)
[2017-09-06] MEDS ORDERED: MELATONIN 3 MG TAB PO PRN (02:53)
[2017-09-06] MEDS: HYDROmorphone HCL/NS/PF 0.4 MG/2 ML SYR IVP PRN ×2 (02:58→09:41)
[2017-09-06 04:45] LABS: % IMMATURE GRANULYOCYTES 0.2 % (0.0-1.1); ABSOLUTE IMMATURE GRANULOCYTES 0.01 10^3/uL (0.00-0.10); ADD DIFF? NO; ADD MORPH? NO; ADD SCAN? NO; ATYPICAL LYMPHOCYTE FLAG 0 (0-99); FRAGMENT RBC FLAG 0 (0-99); HEMATOCRIT 38.1 % (38.0-47.0); HEMOGLOBIN 12.9 g/dL (12.6-16.3); LEFT SHIFT FLG 0 (0-99); LIPEMIA HEMOLYSIS FLAG 90 (0-99); MEAN CELL HEMOGLOBIN 29.2 pg (27.9-34.1); MEAN CELL HEMOGLOBIN CONCENTR. 33.9 g/dL (32.4-36.7); MEAN CELL VOLUME 86.2 fL (81.5-99.8); MEAN PLATELET VOLUME 9.2 fL (8.7-11.7); PLATELET CLUMPS FLAG 0 (0-99); PLATELET COUNT 201 10^3/uL (150-400); RED BLOOD CELL COUNT 4.42 10^6/uL (4.18-5.33); RED CELL DISTRIBUTION WIDTH 13.2 % (11.5-15.2)
[2017-09-06 04:58] LABS: ANION GAP 10 mEq/L (8-16); CARBON DIOXIDE 27 mEq/l (22-31); CHLORIDE 107 mEq/L (97-110); CREATININE 0.8 mg/dL (0.6-1.0); GLOMERULAR FILTRATION RATE > 60; GLUCOSE 112 mg/dL (70-100); SODIUM 144 mEq/L (134-144)
[2017-09-06 05:07] LABS: TROPONIN I < 0.012 ng/mL (0.000-0.034)
[2017-09-06 05:10] LABS: SEDIMENTATION RATE 7 MM/HR (0-20)
[2017-09-06] MEDS: ENOXAPARIN 40 MG/0.4 ML SYR SC SCH (09:32)
[2017-09-06] MEDS ORDERED: SUMAtriptan 6 MG/0.5 ML VIAL SC ONE (11:56)
[2017-09-06] MEDS ORDERED: METHOCARBAMOL 500 MG TAB PO PRN (11:57)
[2017-09-06] MEDS ORDERED: IBUPROFEN 800 MG TAB PO SCH (14:00)
--- NOTE | 2017-09-06 14:38 | ASMTCASEMG ---
Living Arrangements What is your living Answers: With Spouse arrangement? Who do you live with? Type Of Residence What kind of residence do Answers: House you live in? Discharge Plan Comments Coordination Status Comments Notes: Pt is a 47 y/o female admitted for chest pain. Pt had a stroke alert this AM. PT, OT and inpatient rehab have been ordered and awaiting recommendations. Needs are TBD at this time. CM to follow. Date Signed: 09/06/2017 02:37 PM Electronically Signed By:JACOBY Hsieh
[2017-09-06] MEDS: PREGABALIN 50 MG CAP PO SCH ×2 (16:07→21:01)
[2017-09-06] MEDS: IBUPROFEN 200 MG TAB PO SCH ×2 (16:07→20:54)
[2017-09-06] MEDS ORDERED: LORazepam 2 MG/ML INJ IVP PRN (16:12)
--- NOTE | 2017-09-06 16:53 | HOSPPROG ---
Hospitalist Progress Note Assessment/Plan: Stroke alert called for new left sided weakness and numbness Patient seen and found to have 1/5 UE and LE strength on left. This is associated with left sided numbness of arm and face. She reported this to us about 9:30 am. During the stroke alert she told Jim Fish that symptom onset was 6:30am but she did not tell nursing. She was therefore outside the window for tpa. Stat head CT negative. Neuro exam is inconsistent. On formal testing she demonstrates 1/5 strength, yet she is able to walk, and she is noticed by nursing to reach for her phone with the left arm without difficulty. Suspicion for stroke is low. Seems functional. Jim Fish felt mobility was limited by pain as she reports severe pain limiting her abilities. c/o migraine. Possible complex migraine, although she has never had weakness associated with her migraines in the past. MRI brain and C-spine ordered and remain pending at this time. CC time spent - 50 minutes Objective: Vital Signs Temp Pulse Resp BP Pulse Ox 36.7 C 59 L 16 104/79 92 09/06/17 15:46 09/06/17 15:46 09/06/17 15:46 09/06/17 15:46 09/06/17 15:[address] negative[address] CTA chest negative - Physical Exam Constitutional: obese, uncomfortable, No chronically ill appearing, No unkempt Cardiovascular: regular rate and rhythym, no murmur, rub, or gallop Respiratory: no respiratory distress, no rales or rhonchi, clear to auscultation Gastrointestinal: normoactive bowel sounds, soft, non-tender abdomen, no palpable masses Skin: no rashes or abrasions, no fluctuance, no induration Neurologic: AAOx3, weakness (1/5 UE and LE), numbness, CN II-XII Intact, No sensation intact bilaterally (numbness arm and left side of face), No facial droop Psychiatric: interacting appropriately, not anxious, not encephalopathic, thought process linear ICD10 Worksheet Patient Problems: Problems Problem Status Onset Chest pain Acute Chest wall pain Acute Nausea Acute
[2017-09-06] MEDS ORDERED: NON-FORMULARY NEW DRUG (Zolpidem Tartrate [Ambien 10 Mg] 10 MG) PO SCH (21:00)
[2017-09-06] MEDS ORDERED: ZOLPIDEM TARTRATE 5 MG TAB PO SCH (21:00)
[2017-09-07 05:26] LABS: CHOLESTEROL 185 mg/dL (140-200); CHOLESTEROL/HDL RATIO 4.63 RATIO (1.00-4.44); HIGH DENSITY LIPOPROTEIN 40 mg/dL (40-95); LDL/HDL RATIO 2.78 RATIO (1.00-3.22); LOW DENSITY LIPOPROTEIN 111 mg/dL (70-100); NON-HIGH DENSITY LIPOPROTEIN 145 mg/dL (90-129); TRIGLYCERIDE 174 mg/dL (35-135); VERY LOW DENSITY LIPOPROTEINS 34 mg/dL (8-25)
[2017-09-07] MEDS ORDERED: ASPIRIN EC 325 MG TAB PO SCH (09:00)
[2017-09-07] MEDS: IBUPROFEN 200 MG TAB PO SCH (09:04)
[2017-09-07] MEDS: PREGABALIN 50 MG CAP PO SCH (09:04)
[2017-09-07] MEDS: ENOXAPARIN 40 MG/0.4 ML SYR SC SCH (09:05)
--- NOTE | 2017-09-07 10:16 | PDMN ---
Medical Necessity Medical necessity: Change to IP, as of 09/06/17, per MD; los >2 mn for ongoing eval/tx of atypical chest wall pain, new L sided weakness/numbness r/t possible stroke, possible complex migraine, admit for MRI brain & C-spine; hx fibromyalgia & PEs; per progress note & order 09/06/17
[2017-09-07 11:28] VITALS: BP 134/83; PULSE 76; RESP 18; TEMP 97.7; O2SAT 94
--- NOTE | 2017-09-07 11:48 | NEUROPROG ---
Assessment: HOSPITAL NEUROLOGY CONSULT REQUESTING: Aliyah Matthews MD REASON: left-sided weakness HPI: 47 year old right-handed woman with a history of fibromyalgia who was admitted 09/05 with left-sided chest pain radiating down the left arm. Cardiopulmonary workup was negative, and pain was thought to be musculoskeletal given reproduction of pain with palpation. Yesterday afternoon, stroke alert was called as patient was complaining of left arm/leg weakness and left face/arm/ leg numbness. Despite her complaints, she was seen walking and bearing weight on the left leg, and also reaching for objects with her left upper extremity. Patient states her symptoms began at 0600, but she didn't tell anyone. She was not a stroke intervention candidate due to being outside the time window. CT head was done and was without acute pathology. MRI brain wo was done showing chronic microvascular ischemic changes in the white matter, but nothing acute. Cervical spine MRI wo was done showing degenerative changes, but nothing to explain LUE weakness, and no central canal stenosis. She remains symptomatic today, but again is seen ambulating and using her LUE. ROS: As per the HPI, otherwise a complete 12 point ROS was performed and is negative ALLERGIES AND MEDS: As recorded in the EMR - reviewed and reconciled PFSH: As per the intake H&P by Dr. Merritt from 09/05 EXAM: VS reviewed in EMR GEN: obese woman seen walking to bathroom unassisted in NAD HEENT: NCAT, sclera anicteric, conjunctiva not injected, MMM, oropharynx clear, no scalp tenderness NECK: supple, nontender, no meningismus CV: RRR s1 s2 wo m/r/c/g. Carotid pulses 2+ wo bruit NEURO: MS: awake, alert, oriented to all spheres. Speech nondysarthric. No language disturbance. Follows commands. Attends to both sides. Recent/remote memory grossly intact. Mood depressed. Adequate fund of knowledge. CN: pupils 5mm round and reactive. Fundi with sharp discs. VFF. Primary gaze centered. Full ocular motility. Subjective diminished PP in left hemiface, splits tuning fork. Face symmetric. Hearing grossly intact to finger rub. Palatoglossal movements intact. Shoulder shrug and head turn strong. MOTOR: normal bulk/tone. No adventitial movements. Giveway weakness and submax effort in all LUE and LLE groups. Patient also seen grabbing food with LUE from her bedside tray. On Berwind testing, the LUE drifts without pronation. SENSORY: subjective absent sensation to all modalities in LUE/LLE. No extinction. COORD: no ataxia FN/HS. Enrique robotic in LUE and she won't paddle left foot REFLEX: plantars down. No clonus. DTRS 2/4. GAIT: rises unassisted. Narrow base. Intact stride length/heel strike/toe lift /arm swing. Turns with 2 steps. Unable to tandem. DATA REVIEW: Labs reviewed in EMR PERSONALLY INTERPRETED RESULTS AND DATA: MRI brain wo and MRI C-spine wo reviewed per the HPI IMPRESSION AND RECOMMENDATIONS: // CONVERSION DISORDER Patient with subjective left-sided weakness and numbness with nonorganic and inconsistent exam. She is seen using the LUE and walking without problem. On focused exam, she splits the tuning fork across her brow (nonorganic), has giveway weakness/submax effort and drift without pronation, all indicating a nonorganic process. Further confirmation is her unremarkable neuroimaging. Recommend outpatient evaluation with psychiatry for evaluation and medical optimization of underlying mood disorder, as well as consultation with cognitive behavioral therapist for regular intensive therapy. No further neurologic workup/intervention/followup needed. Will sign off. Objective: Vital Signs Temp Pulse Resp BP Pulse Ox 36.5 C 76 18 134/83 H 94 09/07/17 11:24 09/07/17 11:24 09/07/17 11:24 09/07/17 11:24 09/07/17 11:24 Allergies/Adverse Reactions: diphenhydramine [From Benadryl] Allergy (Mild, Verified 04/09/17 09:05) itching,vomiting Penicillins Allergy (Mild, Verified 04/09/17 09:04) Vomiting latex Allergy (Verified 11/17/16 13:37)
[2017-09-07] MEDS ORDERED: MAGNESIUM HYDROXIDE 30 ML UDCUP PO ONE (12:30)
--- NOTE | 2017-09-07 13:14 | ASMTCMCOM ---
CM Note CM Note Notes: Pt is being discharged home independent w/ supportive . PT is recommending outpatient rehab. CM available for changes. Date Signed: 09/07/2017 01:13 PM Electronically Signed By:JACOBY Hsieh
--- NOTE | 2017-09-07 16:00 | ASDISCHSUM ---
Discharge Information Plan Status:Home with No Needs Medically Cleared to Leave:09/06/2017 Discharge Date:09/07/2017 01:50 PM CM D/C Disposition: ADT D/C Disposition:Home, Routine, Self-Care Projected Discharge Date:09/07/2017 12:00 AM Transportation at D/C: Discharge Delay Reason: Follow-Up Date:09/07/2017 12:00 AM Discharge Slot: Final Diagnosis: Placement Information Patient Contact Information Contact Name:MICHELLE Relationship: Address:[address] Work Phone: City:UNKNOWN Alternate Phone: State/Zip Code:[place] Email: Financial Information Financial Class: Primary Plan Desc:[employer] [place] Primary Plan Number:[id number] Secondary Plan Desc: Secondary Plan Number: Assessment Information [facility] Initial CM Assessment Living Arrangements What is your living Answers: With Spouse arrangement? Who do you live with? Type Of Residence What kind of residence do Answers: House you live in? Discharge Plan Comments Coordination Status Comments Notes: Pt is a 47 y/o female admitted for chest pain. Pt had a stroke alert this AM. PT, OT and inpatient rehab have been ordered and awaiting recommendations. Needs are TBD at this time. CM to follow. Date Signed: 09/06/2017 02:37 PM Electronically Signed By:JACOBY Hsieh [facility] CM Progress Note CM Note CM Note Notes: Pt is being discharged home independent w/ supportive . PT is recommending outpatient rehab. CM available for changes. Date Signed: 09/07/2017 01:13 PM Electronically Signed By:JACOBY Hsieh Intervention Information
== END 2017-09-07 13:50 | disposition home or self-care (01) | DRG 313 ==
LOC: F3E 09-06 02:32 → OBSVTOIN 09-06 09:45
PROVIDERS: ADMIT Student in an Organized Health Care Education/Training Program; ATTEND Student in an Organized Health Care Education/Training Program
DX: R07.9 Chest pain, unspecified (principal); F44.4 Conversion disorder with motor symptom or deficit; M79.7 Fibromyalgia; E66.9 Obesity, unspecified; Z86.711 Personal history of pulmonary embolism; G43.909 Migraine, unspecified, not intractable, without status migrainosus
CPT/HCPCS: 96374; 97161-GP; 97165-GO; G0378; J1170; J1650; J1885; J2060; J3030; Q9967

== ENCOUNTER 2018-10-03 22:19 | Emergency (ER) | payer MEDICAID ==
--- NOTE | 2018-10-03 22:56 | EDPHY ---
H & P Stated Complaint: L foot pain, groin pain X a few months Source: Patient Exam Limitations: No limitations - Personal History LMP (Females 10-55): Hysterectomy Current Tetanus/Diphtheria Vaccine: Yes Current Tetanus Diphtheria and Acellular Pertussis (TDAP): Yes - Medical/Surgical History Hx Asthma: No Hx Chronic Respiratory Disease: No Hx Diabetes: No Hx Cardiac Disease: No Hx Renal Disease: No Hx Cirrhosis: No Hx Alcoholism: No Hx HIV/AIDS: No Hx Splenectomy or Spleen Trauma: No Other PMH: PSHx: ONI. PMHx: PE's, Fibromyalgia, Cervical CA, HTN - Social History Smoking Status: Never smoked Time Seen by Provider: 10/03/18 22:41 HPI/ROS: HPI: This is a 48-year-old female who presents with Chief Complaint: Right foot pain, groin pain X a few months Location: Right foot and right lower quadrant/groin Quality: Pain Duration: Several months Signs and Symptoms: no fever, no nausea, no vomiting, no hematemesis, no blood in stool, no abdominal bloating, no diarrhea, no back pain, + malodorous urine, no vaginal bleeding/discharge, no indigestion, no chest pain, no shortness of breath Timing: Daily Severity: [id number] Context: Patient presents with several complaints primarily right lower quadrant right groin pain for the last few months. She denies any swelling, skin color changes, nausea diarrhea. She reports that she has a history total abdominal hysterectomy and umbilical hernia repair with mesh. She also had an IVC filter placed approximately 5 years ago for history of pulmonary embolism and she was placed on anticoagulation for 6 months but has not been on any for several years. She reports that she is eating and drinking normally. She denies fever, vaginal bleeding, vaginal discharge. She notes a odor for when she urinates. She is but is not sexually active in the last 5 years. She has not had a pelvic exam performed in the last 5 years. She also complains of right lateral foot pain and swelling over the last few months. The pain increases with walking and climbing stairs. She reports that she wear sneakers without any improvement. She denies any trauma, injury. Modifying Factors: None Comment: ROS: A comprehensive 10 system review of systems is otherwise negative aside from elements mentioned in the history of present illness. MEDICAL/SURGICAL/SOCIAL HISTORY: Medical history: PE's, Fibromyalgia, Cervical CA, HTN Surgical history: Total abdominal hysterectomy, umbilical hernia repair with mesh, IVC filter placement Social history: . Nonsmoker. Family history noncontributory. CONSTITUTIONAL: Nontoxic-appearing, morbidly obese, middle-aged white female, awake and alert, no obvious distress HEENT: Atraumatic and normocephalic, PERRL, EOMI. Wears glasses. Nares patent ; no rhinorrhea; no nasal mucosal edema. Tympanic membranes clear. Oropharynx clear, no exudate and moist pink mucosa. Airway patent. No lymphadenopathy. No meningismus. Cardiovascular: Normal S1/S2, regular rate, regular rhythm, without murmur rub or gallop. PULMONARY/CHEST: Symmetrical and nontender. Clear to auscultation bilaterally. Good air movement. No accessory muscle usage. ABDOMEN: Soft, nondistended, mild right lower quadrant pain, no rebound, no guarding, no peritoneal signs, no masses or organomegaly. No CVAT. PELVIC: normal external genitalia, no fluctuance or redness appreciated over the pubic mons but tenderness to palpation. The exam was performed with a carbon printer. EXTREMITIES: 2/2 pulses, strength 5/5, right Ankle: Plantar flexion to 50, dorsiflexion to 20. Foot inversion to 35 degree. No tenderness/swelling Anterior talofibular ligament. No tenderness/swelling Calcaneofibular ligament , no tenderness/swelling posterior talofibular ligament, no tenderness/swelling posterior inferior tibiofibular ligament. Achilles tendon intact. Right foot shows mild swelling and tenderness to palpation on the lateral aspect near the arch but no erythema, deformity, ecchymosis appreciated. no clubbing, no cyanosis or edema. NEUROLOGICAL: no focal neuro deficits. GCS 15. SKIN: Warm and dry, no erythema. no rash. Good capillary refill. (Roula Ambrose) Constitutional: Initial Vital Signs Temperature (C) 36.7 C 10/03/18 22:24 Heart Rate 80 10/03/18 22:24 Respiratory Rate 18 10/03/18 22:24 Blood Pressure 184/105 H 10/03/18 22:24 O2 Sat (%) 98 10/03/18 22:24 O2 Delivery Mode Room Air Allergies/Adverse Reactions: diphenhydramine [From Benadryl] Allergy (Mild, Verified 10/03/18 22:21) itching,vomiting Penicillins Allergy (Mild, Verified 10/03/18 22:21) Vomiting latex Allergy (Verified 10/03/18 22:21) Home Medications: Medication Instructions Recorded Pregabalin [Lyrica 50mg (*)] 50 mg PO TID 09/06/17 Zolpidem Tartrate [Ambien 10 mg] 10 mg PO HS 09/06/17 Acetaminophen [Tylenol 325mg (*)] 650 mg PO Q4HRS PRN tab 09/07/17 Cephalexin [Keflex (*)] 500 mg PO TID #21 cap 10/04/18 Medical Decision Making - Diagnostics Imaging Results: Imaging Impressions Foot X-Ray 10/03/18 23:11 Impression: Nothing acute identified. ED Course/Re-evaluation: Vital signs reviewed and show elevated blood pressure. IV access and laboratory studies along with urinalysis, CT abdomen and pelvis scan with contrast, right foot x-ray ordered 2329: Urinalysis shows 3+ LE, WBC 15-25, 1+ bacteria; sent for urine culture; p.o. Keflex given Right foot x-ray my read shows pes planus and calcaneal spur; suspect patient has peroneal tendinitis; podiatry referral 0005: Laboratory studies reviewed. No signs of leukocytosis/anemia/platelet dysfunction/IVELISSE/elevated LFTs/electrolyte imbalance/pancreatitis. 0007: End of shift. Signed over to Dr. Shane pending CT abdomen and pelvis scan. Suspect patient will be discharged home with antibiotics for urinary tract infection referral to OBGYN and podiatry. This patient was seen under the supervision of my secondary supervising physician. I evaluated care for this patient independently. Discussed this patient with Dr. Shane who did not see the patient. (Roula Ambrose) Differential Diagnosis: Abdominal pain including but not limited to appendicitis, cholecystitis, gastritis and urinary tract infection. (Roula Ambrose) Other Provider: 0005 care assumed from PA read pending CT scan of the abdomen pelvis. 0055 CT scan abdomen pelvis shows no acute intra-abdominal pathology. Normal appendix, gallbladder is out. Small hernia which is fat containing. No acute surgical or infectious process. Plan will be to discharge per PAs plan. (Kenneth Shane) - Data Points Laboratory Results: Laboratory Results 10/03/18 23:32 10/03/18 23:32 10/03/18 10/03/18 10/03/18 23:32 23:32 23:10 WBC 6.40 10^3/uL 10^3/uL (3.80-9.50) RBC 4.81 10^6/uL 10^6/uL (4.18-5.33) Hgb 13.8 g/dL g/dL (12.6-16.3) Hct 42.2 % % (38.0-47.0) MCV 87.7 fL fL (81.5-99.8) MCH 28.7 pg pg (27.9-34.1) MCHC 32.7 g/dL g/dL (32.4-36.7) RDW 12.5 % % (11.5-15.2) Plt Count 272 10^3/uL 10^3/uL (150-400) MPV 9.4 fL fL (8.7-11.7) Neut % (Auto) 50.2 % % (39.3-74.2) Lymph % (Auto) 40.5 % % (15.0-45.0) Cloud % (Auto) 6.6 % % (4.5-13.0) Eos % (Auto) 1.6 % % (0.6-7.6) Baso % (Auto) 0.8 % % (0.3-1.7) Nucleat RBC Rel Count 0.0 % % (0.0-0.2) Absolute Neuts (auto) 3.22 10^3/uL 10^3/uL (1.70-6.50) Absolute Lymphs (auto) 2.59 10^3/uL 10^3/uL (1.00-3.00) Absolute Monos (auto) 0.42 10^3/uL 10^3/uL (0.30-0.80) Absolute Eos (auto) 0.10 10^3/uL 10^3/uL (0.03-0.40) Absolute Basos (auto) 0.05 10^3/uL 10^3/uL (0.02-0.10) Absolute Nucleated RBC 0.00 10^3/uL 10^3/uL (0-0.01) Immature Gran % 0.3 % % (0.0-1.1) Immature Gran # 0.02 10^3/uL 10^3/uL (0.00-0.10) Sodium 138 mEq/L mEq/L (135-145) Potassium 4.0 mEq/L mEq/L (3.5-5.2) Chloride 105 mEq/L mEq/L (97-110) Carbon Dioxide 22 mEq/l mEq/l (22-31) Anion Gap 11 mEq/L mEq/L (6-14) BUN 12 mg/dL mg/dL (7-23) Creatinine 0.6 mg/dL mg/dL (0.6-1.0) Estimated GFR > 60 Glucose 114 mg/dL H mg/dL (70-100) Calcium 9.5 mg/dL mg/dL (8.5-10.4) Total Bilirubin 0.4 mg/dL mg/dL (0.1-1.4) Conjugated Bilirubin 0.2 mg/dL mg/dL (0.0-0.5) Unconjugated Bilirubin 0.2 mg/dL mg/dL (0.0-1.1) AST 16 IU/L IU/L (14-46) ALT 20 IU/L IU/L (9-52) Alkaline Phosphatase 75 IU/L IU/L (38-126) Total Protein 7.1 g/dL g/dL (6.3-8.2) Albumin 4.4 g/dL g/dL (3.5-5.0) Lipase 62 IU/L IU/L (23-300) Urine Color YELLOW Urine Appearance HAZY Urine pH 5.0 (5.0-7.5) Ur Specific Forrest 1.026 (1.002-1.030) Urine Protein NEGATIVE (NEGATIVE) Urine Ketones NEGATIVE (NEGATIVE) Urine Blood NEGATIVE (NEGATIVE) Urine Nitrate NEGATIVE (NEGATIVE) Urine Bilirubin NEGATIVE (NEGATIVE) Urine Urobilinogen NEGATIVE EU EU (0.2-1.0) Ur Leukocyte Esterase 3+ H (NEGATIVE) Urine RBC 1-3 /hpf /hpf (0-3) Urine WBC 15-25 /hpf H /hpf (0-3) Ur Epithelial Cells 1+ /lpf /lpf (NONE-1+) Urine Bacteria 1+ /hpf H /hpf (NONE SEEN) Urine Mucus 2+ /lpf H /lpf (NONE-1+) Urine Glucose NEGATIVE (NEGATIVE) Departure - Departure Clinical Impression: Acute cystitis without hematuria, Peroneal tendonitis of right lower extremity , Calcaneal spur of right foot Condition: Good Instructions: Urinary Tract Infection in Women (ED), Tendinitis (ED) Additional Instructions: Consume a minimum of 8-10 glasses of water or electrolyte fluid replacement drinks that include Gatorade, Powerade, Pedialyte. Take antibiotic as directed. Do not skip a dose. Follow up with OBGYN in the next 1-2 weeks to establish care and obtain pelvic exam. Follow-up with Podiatry to further evaluate your tendinitis. Take Tylenol 650 mg every 4 hours and/or Ibuprofen 600 mg every 8 hours with food as needed for pain. Apply ice for 30 minutes at a time; 2-3 times per day for the next 1-2 days. Referrals: Keshawn López DPM [Doctor of Podiatric Medicine] - As per Instructions Luz Costa MD [Medical Doctor] - As per Instructions Prescriptions: Cephalexin [Keflex (*)] 500 mg PO TID #21 cap
[2018-10-03] MEDS ORDERED: IOPAMIDOL (ISOVUE-300) 100 ML BTL ONE (23:16)
[2018-10-03 23:41] LABS: PLATELET COUNT 272 10^3/uL (150-400)
[2018-10-04] MEDS ORDERED: CEPHALEXIN 500MG PREPACK#4 BTL TAKEHOME ONE (00:09)
[2018-10-04 01:08] VITALS: BP 148/97
== END 2018-10-04 01:07 | disposition home or self-care (01) ==
DX: N30.00 Acute cystitis without hematuria (principal); M76.71 Peroneal tendinitis, right leg; I10 Essential (primary) hypertension; Z90.710 Acquired absence of both cervix and uterus; Z86.711 Personal history of pulmonary embolism; Z85.41 Personal history of malignant neoplasm of cervix uteri; M77.31 Calcaneal spur, right foot
CPT/HCPCS: Q9967